=== PATIENT | female | born 1990 | race African-American/Black ===

== ENCOUNTER 2020-01-28 14:23 | Emergency (ER) | payer SELFPAY ==
[~2020-01-28] VITALS: Ht 157.5 cm; Wt 68.2 kg
--- NOTE | 2020-01-28 14:34 | NUR ---
TASK RN: BIB [facility] AFTER PT STARTED MENSTRUAL CYCLE THIS MORNING. STATES DISCHARGE/BLEEDING SAME. STATES INCREASED CRAMPING PAIN AND CYCLIC VOMITING. PT RESTING ON GURNEY. NADN. MONITORS APPLIED. MASK PROVIDED. WARM BLANKET PROVIDED. CALL LIGHT IN REACH. NEW PAD PROVIDED. REPORT GIVEN TO TUCKER GUTIERREZ.
[2020-01-28] MEDS ORDERED: KETOROLAC 30 MG/1 ML IVPush ONE (15:00)
[2020-01-28] MEDS ORDERED: SODIUM CHLORIDE FLUSH 10ML SYR IVF ONE (15:00)
[2020-01-28] MEDS ORDERED: SODIUM CHLORIDE 0.9% 1,000ML IVBOLUS ONE (15:00)
[2020-01-28] MEDS ORDERED: ONDANSETRON 2MG/ML, 2ML IVPush ONE (15:00)
--- NOTE | 2020-01-28 15:07 | NUR ---
PIV STARTED, LABS DRAWN. PT MEDICATED PER [facility].
[2020-01-28] MEDS ORDERED: KETOROLAC 30 MG/1 ML ONE (15:08)
[2020-01-28 15:18] LABS: MEAN CORPUSCULAR HGB CONC 32.2 g/dL (32.4-35.8); MEAN CORPUSCULAR VOLUME 102.3 fL (80-100); PLATELET COUNT 389 x10^3/uL (130-400); RED CELL DISTRIBUTION WIDTH 14.3 % (9.6-15.2)
[2020-01-28 15:21] LABS: ANION GAP 7 mmol/L (5-15); CHLORIDE 106 mmol/L (98-107)
[2020-01-28 15:24] LABS: % IRON SATURATION 21 % (20-55); ALANINE AMINOTRANSFERASE 28 U/L (12-78); ALKALINE PHOSPHATASE 118 U/L (45-117); BILIRUBIN,TOTAL 0.3 mg/dL (0.2-1.0); CREATININE 0.86 mg/dL (0.55-1.02); IRON LEVEL 84 mcg/dL (50-170); TOTAL IRON BINDING CAPACITY 402 mcg/dL (250-450); TOTAL PROTEIN 8.9 g/dL (6.4-8.2)
--- NOTE | 2020-01-28 15:48 | NUR ---
PT REPORTS PAIN HAS IMPROVED SINCE MEDS.
[2020-01-28 15:50] LABS: MD YES
--- NOTE | 2020-01-28 15:51 | NUR ---
PT AMBULATED TO THE BR W/ A STEADY GAIT. PROVIDED URINE CUP FOR SAMPLE.
[2020-01-28 15:53] LABS: BANDS%(MANUAL) 9 % (0-7); LYMPH#(MANUAL) 1.89 x10^3/uL (1-3.4); LYMPHS% (MANUAL) 10 % (22-44); METAMYELOCYTES# (MANUAL) 0.38 x10^3/uL (0-0); METAMYELOCYTES% (MANUAL) 2 % (0-1); MONOS#(MANUAL) 0.57 x10^3/uL (0.3-2.7); MONOS% (MANUAL) 3 % (2-9); SEG#(MANUAL) 14.36 x10^3/uL (1.8-6.8); SEGS% (MANUAL) 76 % (42-75)
[2020-01-28 15:56] LABS: <PLATELET ESTIMATE> ADEQUATE; <PLT MORPHOLOGY> NORMAL PLT MORPH
[2020-01-28 15:58] VITALS: BP 115/55
--- NOTE | 2020-01-28 16:03 | NUR ---
URINE COLLECTED AND SENT TO LAB.
[2020-01-28 16:24] LABS: MICROSCOPIC INDICATED
[2020-01-28] MEDS ORDERED: CEFTRIAXONE PMX 1GM/50ML 50 ML ONE (16:25)
[2020-01-28] MEDS ORDERED: CEFTRIAXONE PMX 1GM/50ML 50 ML IV ONE (16:30)
== END 2020-01-28 17:40 | disposition home or self-care (01) ==
LOC: ED 17:21
DX: D72.825 Bandemia (principal); R10.9 Unspecified abdominal pain; R19.7 Diarrhea, unspecified; N98.9 Complication associated with artificial fertilization, unspecified; R42 Dizziness and giddiness; R11.2 Nausea with vomiting, unspecified; R10.84 Generalized abdominal pain
CPT/HCPCS: 36415; 80053; 81001; 82728; 83540; 83550; 83615; 84703; 85025; 87086; 96361; 96365; 96375; 99284; J0696; J1885; J7030